=== PATIENT | female | born 1980 | race African-American/Black ===

== ENCOUNTER 2019-05-04 20:06 | Emergency (ER) | payer MEDICAID | END 2019-05-04 20:32 | LOC: ER 20:08 | DX: S09.90XA Unspecified injury of head, initial encounter (principal); F10.129 Alcohol abuse with intoxication, unspecified; F17.210 Nicotine dependence, cigarettes, uncomplicated; V43.52XA Car driver injured in collision with other type car in traffic accident, initial encounter; Y93.I9 Activity, other involving external motion; Y92.410 Unspecified street and highway as the place of occurrence of the external cause; Y99.8 Other external cause status ==

== ENCOUNTER 2022-02-19 13:42 | Emergency (ER) | payer MEDICAID, OTHER ==
[~2022-02-19] VITALS: Ht 162.6 cm; Wt 54.5 kg
[2022-02-19 13:55] VITALS: BP 154/104
[2022-02-19] MEDS ORDERED: ACETAMINOPHEN 500 MG TAB PO ONE (14:15)
== END 2022-02-19 18:08 | disposition left against medical advice (07) ==
LOC: EDUNIT# 13:42 → ER 13:42 → EDBD 13:42 → ER 18:08
DX: M54.50 Low back pain, unspecified (principal); R11.10 Vomiting, unspecified; Z53.21 Procedure and treatment not carried out due to patient leaving prior to being seen by health care provider